=== PATIENT | female | born 1955 | race Caucasian/White ===

== ENCOUNTER 2019-04-03 15:16 | Emergency (ER) | payer OTHER ==
[2019-04-03] MEDS: HYDROCODONE/APAP (10/325) TAB PO (18:22)
== END 2019-04-03 19:30 | disposition home or self-care (01) ==
LOC: FTE 15:16
DX: S82.65XA Nondisplaced fracture of lateral malleolus of left fibula, initial encounter for closed fracture (principal); X50.1XXA Overexertion from prolonged static or awkward postures, initial encounter; Y92.9 Unspecified place or not applicable
CPT/HCPCS: 29515; 73610; 99283-25

== ENCOUNTER 2019-07-14 08:21 | Inpatient (IN) | payer OTHER ==
[2019-07-14] MEDS: CEFAZOLIN 2 GM/50 ML (PMX) 50 ML IVPB ×2 (07:00→16:30)
[2019-07-14] MEDS: SOD CHLORIDE 0.9% 1,000 ML IV ×2 (07:00→16:55)
[2019-07-14 10:33] LABS: ADD MAN DIFF? NO
[2019-07-14 10:58] LABS: WHITE BLOOD COUNT 8.8 10^3/ul (4.8-10.8)
[2019-07-14 10:58] LABS: BASOPHIL # 0.1 10^3/ul (0.0-0.1); EOSINOPHILS # 0.2 10^3/ul (0.0-0.5); EOSINOPHILS % 1.8 % (0.0-7.0); HEMATOCRIT 41.1 % (37.0-47.0); HEMOGLOBIN 13.4 g/dl (12.0-16.0); INR 0.79; LYMPHOCYTES # 2.1 10^3/ul (0.8-2.9); LYMPHOCYTES % 23.5 % (15.0-51.0); MEAN CORPUSCULAR HEMOGLOBIN 31.5 pg (29.0-33.0); MEAN CORPUSCULAR HGB CONC 32.6 g/dl (32.0-37.0); MEAN CORPUSCULAR VOLUME 96.7 fl (82.0-101.0); MEAN PLATELET VOLUME 9.9 fl (7.4-10.4); MONOCYTE # 0.8 10^3/ul (0.3-0.9); MONOCYTES % 9.1 % (0.0-11.0); NEUTROPHIL # 5.7 10^3/ul (1.6-7.5); NEUTROPHILS % 64.4 % (39.0-77.0); PLATELET COUNT 335 10^3/UL (140-415); PROTIME 11.1 Sec (11.9-14.9); PT RATIO 0.9; RED BLOOD COUNT 4.25 10^6/ul (4.20-5.40); RED CELL DISTRIBUTION WIDTH 12.4 % (11.5-14.5)
[2019-07-14 10:59] LABS: PARTIAL THROMBOPLASTIN TIME 31.9 Sec (23.0-35.0)
[2019-07-14 11:43] LABS: ALANINE AMINOTRANSFERASE 50 IU/L (13-69); ALBUMIN 4.1 g/dl (3.3-4.9); ALBUMIN/GLOBULIN RATIO 1.24; ALKALINE PHOSPHATASE 59 IU/L (42-121); ANION GAP 7 (5-13); ASPARTATE AMINO TRANSFERASE 43 IU/L (15-46); BILIRUBIN,INDIRECT 0.3 mg/dl (0-1.1); BILIRUBIN,TOTAL 0.3 mg/dl (0.2-1.3); BLOOD UREA NITROGEN 18 mg/dl (7-20); CALCIUM 9.5 mg/dl (8.4-10.2); CARBON DIOXIDE 31 mmol/L (21-31); CHLORIDE 103 mmol/L (97-110); CREATININE 0.59 mg/dl (0.44-1.00); Estimated GFR > 60 mL/min (>60); GLUCOSE 102 mg/dl (70-220); POTASSIUM 4.3 mmol/L (3.5-5.1); SODIUM 141 mmol/L (135-144); TOTAL PROTEIN 7.4 g/dl (6.1-8.1)
[2019-07-14] MEDS ORDERED: BUPIVACAINE 0.25% (MPF) 30 ML INJ (12:22)
[2019-07-14] MEDS ORDERED: ETOMIDATE 20 MG INJ (12:26)
[2019-07-14] MEDS ORDERED: ROCURONIUM 50 MG INJ (12:26)
[2019-07-14] MEDS ORDERED: PROPOFOL 20 ML (12:26)
[2019-07-14] MEDS ORDERED: MIDAZOLAM 1 MG/ML 2 ML INJ (12:27)
[2019-07-14] MEDS ORDERED: LIDOCAINE 1% (MDV) 20 ML INJ (12:27)
[2019-07-14] MEDS ORDERED: HYDROmorphONE 1 MG/5 ML IV SYRINGE IV ×2 (12:30)
[2019-07-14] MEDS ORDERED: ROPIVACAINE 0.5 % 30 ML VIAL (12:34)
[2019-07-14] MEDS ORDERED: morphine SULFATE/PF (10 MG/10 ML) INJ (12:48)
[2019-07-14] MEDS ORDERED: FENTAnyl 50 MCG/ML VIAL (12:48)
[2019-07-14] MEDS ORDERED: CEFAZOLIN 1 GM INJ (13:23)
[2019-07-14] MEDS ORDERED: ONDANSETRON 4 MG INJ (13:24)
[2019-07-14] MEDS: POLYMYXIN/BACITRACIN 1L IRRIG (14:01)
[2019-07-14] MEDS ORDERED: SUGAMMADEX SODIUM 200 MG/2 ML VIAL IV (14:31)
[2019-07-14] MEDS: LACTATED RINGER'S 1,000 ML IV (14:50)
[2019-07-14] MEDS ORDERED: NALOXONE (0.4 MG/ML) INJ IV ×2 (15:00→15:30)
[2019-07-14] MEDS ORDERED: DIPHENHYDRAMINE 50 MG INJ IV (15:30)
[2019-07-14] MEDS ORDERED: HYDROmorphONE 0.5 MG/0.5 ML SYG IV ×2 (15:30)
[2019-07-14] MEDS ORDERED: KETOROLAC 30 MG INJ IV (15:30)
[2019-07-14] MEDS ORDERED: ONDANSETRON 4 MG INJ IV (15:30)
[2019-07-14] MEDS ORDERED: ZOLPIDEM 5 MG TAB PO (15:30)
[2019-07-14 15:38] LABS: ADD MAN DIFF? NO
[2019-07-14] MEDS: HYDROmorphONE 0.2 MG/ML PCA IV (15:41)
[2019-07-14 15:42] LABS: WHITE BLOOD COUNT 11.8 10^3/ul (4.8-10.8)
[2019-07-14 15:42] LABS: BASOPHIL # 0.1 10^3/ul (0.0-0.1); BASOPHILS % 0.8 % (0.0-2.0); EOSINOPHILS # 0.1 10^3/ul (0.0-0.5); EOSINOPHILS % 1.1 % (0.0-7.0); HEMATOCRIT 39.6 % (37.0-47.0); HEMOGLOBIN 12.8 g/dl (12.0-16.0); LYMPHOCYTES # 2.8 10^3/ul (0.8-2.9); LYMPHOCYTES % 23.4 % (15.0-51.0); MEAN CORPUSCULAR HEMOGLOBIN 32.1 pg (29.0-33.0); MEAN CORPUSCULAR HGB CONC 32.3 g/dl (32.0-37.0); MEAN CORPUSCULAR VOLUME 99.2 fl (82.0-101.0); MEAN PLATELET VOLUME 9.5 fl (7.4-10.4); MONOCYTE # 1.1 10^3/ul (0.3-0.9); MONOCYTES % 8.9 % (0.0-11.0); NEUTROPHIL # 7.7 10^3/ul (1.6-7.5); NEUTROPHILS % 65.5 % (39.0-77.0); PLATELET COUNT 313 10^3/UL (140-415); RED BLOOD COUNT 3.99 10^6/ul (4.20-5.40); RED CELL DISTRIBUTION WIDTH 12.3 % (11.5-14.5)
[2019-07-14 16:12] LABS: ALANINE AMINOTRANSFERASE 45 IU/L (13-69); ALBUMIN 3.8 g/dl (3.3-4.9); ALBUMIN/GLOBULIN RATIO 1.18; ALKALINE PHOSPHATASE 55 IU/L (42-121); ANION GAP 7 (5-13); ASPARTATE AMINO TRANSFERASE 39 IU/L (15-46); BILIRUBIN,INDIRECT 0.3 mg/dl (0-1.1); BILIRUBIN,TOTAL 0.3 mg/dl (0.2-1.3); BLOOD UREA NITROGEN 15 mg/dl (7-20); CALCIUM 8.8 mg/dl (8.4-10.2); CARBON DIOXIDE 25 mmol/L (21-31); CHLORIDE 107 mmol/L (97-110); CREATININE 0.53 mg/dl (0.44-1.00); Estimated GFR > 60 mL/min (>60); GLUCOSE 119 mg/dl (70-220); POTASSIUM 3.7 mmol/L (3.5-5.1); SODIUM 139 mmol/L (135-144)
[2019-07-14] MEDS ORDERED: HYDROmorphONE 1 MG/ML SYG IV ×2 (16:20)
[2019-07-14] MEDS: BACLOFEN 10 MG TAB PO (20:20)
[2019-07-14] MEDS: HEPARIN 5,000 UNIT/1 ML VIAL SC (22:32)
[2019-07-15] MEDS: CEFAZOLIN 2 GM/50 ML (PMX) 50 ML IVPB ×2 (00:10→07:37)
[2019-07-15] MEDS: LACTATED RINGER'S 1,000 ML IV ×3 (00:50→18:58)
[2019-07-15 05:17] LABS: ADD MAN DIFF? NO
[2019-07-15 05:21] LABS: BASOPHILS % 0.5 % (0.0-2.0); EOSINOPHILS % 0.2 % (0.0-7.0); HEMATOCRIT 32.7 % (37.0-47.0); HEMOGLOBIN 10.5 g/dl (12.0-16.0); LYMPHOCYTES # 1.6 10^3/ul (0.8-2.9); LYMPHOCYTES % 18.3 % (15.0-51.0); MEAN CORPUSCULAR HEMOGLOBIN 31.9 pg (29.0-33.0); MEAN CORPUSCULAR HGB CONC 32.1 g/dl (32.0-37.0); MEAN CORPUSCULAR VOLUME 99.4 fl (82.0-101.0); MEAN PLATELET VOLUME 9.6 fl (7.4-10.4); MONOCYTES % 11.8 % (0.0-11.0); NEUTROPHIL # 6.1 10^3/ul (1.6-7.5); NEUTROPHILS % 68.9 % (39.0-77.0); PLATELET COUNT 285 10^3/UL (140-415); RED BLOOD COUNT 3.29 10^6/ul (4.20-5.40); RED CELL DISTRIBUTION WIDTH 12.6 % (11.5-14.5)
[2019-07-15 05:21] LABS: WHITE BLOOD COUNT 8.8 10^3/ul (4.8-10.8)
[2019-07-15 05:50] LABS: ALANINE AMINOTRANSFERASE 31 IU/L (13-69); ALBUMIN 3.3 g/dl (3.3-4.9); ALBUMIN/GLOBULIN RATIO 1.22; ALKALINE PHOSPHATASE 38 IU/L (42-121); ANION GAP 6 (5-13); ASPARTATE AMINO TRANSFERASE 26 IU/L (15-46); BILIRUBIN,INDIRECT 0.5 mg/dl (0-1.1); BILIRUBIN,TOTAL 0.5 mg/dl (0.2-1.3); BLOOD UREA NITROGEN 15 mg/dl (7-20); CALCIUM 8.1 mg/dl (8.4-10.2); CARBON DIOXIDE 29 mmol/L (21-31); CHLORIDE 103 mmol/L (97-110); CREATININE 0.58 mg/dl (0.44-1.00); Estimated GFR > 60 mL/min (>60); GLUCOSE 129 mg/dl (70-220); POTASSIUM 4.1 mmol/L (3.5-5.1); SODIUM 138 mmol/L (135-144)
[2019-07-15] MEDS: HEPARIN 5,000 UNIT/1 ML VIAL SC ×3 (06:07→20:55)
[2019-07-15] MEDS: ACETAMINOPHEN 325 MG TAB PO ×3 (07:07→23:03)
[2019-07-15] MEDS: BACLOFEN 10 MG TAB PO ×2 (08:24→20:51)
[2019-07-15] MEDS: LOSARTAN 25 MG TAB PO (08:25)
[2019-07-15] MEDS: POLYETHYLENE GLYCOL 17 GM PACKET PO (08:25)
[2019-07-15] MEDS: SOD CHLORIDE 0.9% 1,000 ML IV ×2 (09:40→23:00)
[2019-07-16] MEDS: LACTATED RINGER'S 1,000 ML IV ×2 (04:54→16:50)
[2019-07-16] MEDS: HYDROmorphONE 0.2 MG/ML PCA IV (05:01)
[2019-07-16 05:18] LABS: ADD MAN DIFF? NO
[2019-07-16 05:32] LABS: BASOPHIL # 0.1 10^3/ul (0.0-0.1); BASOPHILS % 0.9 % (0.0-2.0); EOSINOPHILS # 0.1 10^3/ul (0.0-0.5); EOSINOPHILS % 1.2 % (0.0-7.0); HEMATOCRIT 35.5 % (37.0-47.0); HEMOGLOBIN 11.3 g/dl (12.0-16.0); LYMPHOCYTES # 2.4 10^3/ul (0.8-2.9); LYMPHOCYTES % 27.3 % (15.0-51.0); MEAN CORPUSCULAR HGB CONC 31.8 g/dl (32.0-37.0); MEAN CORPUSCULAR VOLUME 100.6 fl (82.0-101.0); MEAN PLATELET VOLUME 9.7 fl (7.4-10.4); MONOCYTES % 11.7 % (0.0-11.0); NEUTROPHIL # 5.2 10^3/ul (1.6-7.5); NEUTROPHILS % 58.6 % (39.0-77.0); PLATELET COUNT 283 10^3/UL (140-415); RED BLOOD COUNT 3.53 10^6/ul (4.20-5.40); RED CELL DISTRIBUTION WIDTH 12.2 % (11.5-14.5)
[2019-07-16 05:32] LABS: WHITE BLOOD COUNT 8.9 10^3/ul (4.8-10.8)
[2019-07-16] MEDS: HEPARIN 5,000 UNIT/1 ML VIAL SC ×3 (06:17→21:43)
[2019-07-16] MEDS: ACETAMINOPHEN 325 MG TAB PO ×3 (06:18→21:37)
[2019-07-16] MEDS: BACLOFEN 10 MG TAB PO ×2 (09:53→21:37)
[2019-07-16] MEDS: LOSARTAN 25 MG TAB PO (09:53)
[2019-07-16] MEDS: POLYETHYLENE GLYCOL 17 GM PACKET PO (09:54)
[2019-07-16] MEDS: SOD CHLORIDE 0.9% 1,000 ML IV (14:54)
[2019-07-16] MEDS: KETOROLAC 15 MG INJ IV (19:58)
[2019-07-17] MEDS: LACTATED RINGER'S 1,000 ML IV (01:15)
[2019-07-17] MEDS: SOD CHLORIDE 0.9% 1,000 ML IV (01:40)
[2019-07-17] MEDS: HEPARIN 5,000 UNIT/1 ML VIAL SC ×3 (05:43→21:30)
[2019-07-17] MEDS: POLYETHYLENE GLYCOL 17 GM PACKET PO (09:20)
[2019-07-17] MEDS: LOSARTAN 25 MG TAB PO (09:21)
[2019-07-17] MEDS: BACLOFEN 10 MG TAB PO ×2 (09:21→21:15)
[2019-07-17] MEDS: ACETAMINOPHEN 325 MG TAB PO (14:54)
[2019-07-17] MEDS: AMLODIPINE 10 MG TAB PO (15:32)
[2019-07-18] MEDS: ACETAMINOPHEN 325 MG TAB PO ×2 (01:08→09:27)
[2019-07-18] MEDS: HEPARIN 5,000 UNIT/1 ML VIAL SC ×2 (06:00→14:00)
[2019-07-18] MEDS: POLYETHYLENE GLYCOL 17 GM PACKET PO (08:33)
[2019-07-18] MEDS: LOSARTAN 25 MG TAB PO (08:33)
[2019-07-18] MEDS: BACLOFEN 10 MG TAB PO (08:33)
[2019-07-18] MEDS ORDERED: HYDROCODONE/APAP (5/325) TAB PO (09:00)
== END 2019-07-18 17:20 | disposition home or self-care (01) | DRG 940 ==
LOC: SDS 08:21 → REC 14:52 → MS1 16:48
PROVIDERS: Internal Medicine
PROC: 0WQF0ZZ Repair Abdominal Wall, Open Approach (ICD-10-PCS; principal; 2019-07-14 12:30)
PROC: 0HX7XZZ Transfer Abdomen Skin, External Approach (ICD-10-PCS; 2019-07-14 12:30)
PROC: 0WUF0JZ Supplement Abdominal Wall with Synthetic Substitute, Open Approach (ICD-10-PCS; 2019-07-14 12:30)
PROC: 0KXK0ZZ Transfer Right Abdomen Muscle, Open Approach (ICD-10-PCS; 2019-07-14 12:30)
PROC: 0KXL0ZZ Transfer Left Abdomen Muscle, Open Approach (ICD-10-PCS; 2019-07-14 12:30)
DX: G89.18 Other acute postprocedural pain (principal); K43.0 Incisional hernia with obstruction, without gangrene; R10.9 Unspecified abdominal pain; I10 Essential (primary) hypertension
CPT/HCPCS: 71045; 80053; 85025; 85610; 85730; 87086; 93005

== ENCOUNTER 2019-07-19 17:46 | Emergency (ER) | payer OTHER | END 2019-07-19 19:39 | disposition home or self-care (01) | LOC: FTE 19:39 | DX: Z48.00 Encounter for change or removal of nonsurgical wound dressing (principal); I10 Essential (primary) hypertension | CPT/HCPCS: 99281; Z7502 ==